=== PATIENT | male | born 1990 | race African-American/Black ===

== ENCOUNTER 2023-06-08 08:13 | Emergency (ER) | payer OTHER, SELFPAY ==
[2023-06-08] VITALS (20 sets, daily range): BP systolic 115–146; BP diastolic 58–103; PULSE 69–91; RESP 17–27; TEMP 37.5; O2SAT 93–100; BMI 23.1
--- NOTE | 2023-06-08 08:42 | ED.SOB1 ---
HPI - SOB/Dyspnea General Chief Complaint: Shortness of Breath/Dyspnea Stated Complaint: SHORTNESS OF BREATH Time Seen by Provider: 06/08/23 08:34 Source: patient Mode of arrival: walk-in Limitations: no limitations History of Present Illness HPI Narrative: Patient here complaining of ongoing shortness of breath and chest discomfort. Most of his pain is on the right anterior lateral aspect of his chest. He said last week the pain started on the left side. He said he almost thought that he had a kidney stone the pain was so bad. He was at a different emergency room yesterday and was told that he might have pneumonia. He has not started his prescription for antibiotics yet. He did do a CAT scan at that other institution. Related Data Allergies Allergy/AdvReac Type Severity Reaction Status Date / Time No Known Drug Allergies Allergy Verified 06/08/23 08:19 PFSH PFS Social History Smoking status: Current every day smoker Exam Narrative Exam Narrative: Awake alert moderately anxious. He is not tachycardic and his pulse oximetry is 99 to 100% when I examined him and speak to him. He is awake alert pleasant but has a lot of discomfort in his right lateral chest wall. There is no discomfort in his leg at this time. His skin is warm and dry is not tachycardic or diaphoretic or pale. Examination of chest there is no wheeze rales or rhonchi. He has a pleuritic component to the pain as well. Heart sounds are regular with no ectopy. This twelve-lead EKG was noted below. Peripheral pulses extremities are normal. He has no swelling of his lower legs. There is no edema. Twelve-lead EKG shows sinus rhythm rate 76. There is nonspecific ST elevation in lead V3 and V4 V5. No ectopy. No arrhythmia/no ST segment elevation Constitutional Vital Signs, click to edit/add: Last Vital Signs Temp 99.5 F 06/08/23 08:16 Pulse 87 06/08/23 08:16 Resp 20 06/08/23 08:16 BP 127/91 06/08/23 08:16 Pulse Ox 100 06/08/23 08:16 O2 Del Method Room Air 06/08/23 08:16 Course Vital Signs Vital signs: Vital Signs Temperature 99.5 F 06/08/23 08:16 Pulse Rate 87 06/08/23 08:16 Respiratory Rate 20 06/08/23 08:16 Blood Pressure 127/91 06/08/23 08:16 Pulse Oximetry 100 06/08/23 08:16 Oxygen Delivery Method Room Air 06/08/23 08:16 Temperature 99.5 F 06/08/23 08:16 Pulse Rate 87 06/08/23 08:16 Respiratory Rate 20 06/08/23 08:16 Blood Pressure 127/91 06/08/23 08:16 Pulse Oximetry 100 06/08/23 08:16 Oxygen Delivery Method Room Air 06/08/23 08:16 MDM - SOB/Dyspnea MDM Narrative Medical decision making narrative: I did obtain lab and chart from the previous facility yesterday. A CT of the abdomen was done because working diagnosis was kidney stones. That study did indeed confirm right basilar infiltrate of pneumonia. Because the severity of his pain I will do a CTA. He does not have risk factors for DVT but there is some suspicion of family history. He also had some discomfort in his leg several weeks ago. The CT report here confirms pneumonia as well as pulmonary embolism. The CT did not suggest right ventricular strain or any cardiac decompensation. So he will be treated for both conditions including pneumonia and the pulmonary embolism. Will start him on Eliquis and it was imperative that he follow-up with his primary care practitioner for ongoing treatment. He was advised to start the antibiotic as well. Discharge Plan Discharge Chief Complaint: Shortness of Breath/Dyspnea Clinical Impression: Pulmonary embolism Patient Disposition: Home, Self-Care Time of Disposition Decision: 10:40 Additional Instructions: Begin eliquis, start your antibiotic, follow-up with your primary care doctor this week. Consider purchasing pulse oximetry, return for difficulty breathing Referrals: BERTRAND MILLER [Primary Care Provider] - 1 week Stand Alone Forms: Portal Instructions
--- NOTE | 2023-06-08 08:45 | CT_ITS ---
[address] [address] Patient Name: CHARISMA COLBY MRN: [id number] date: 1990 Sex: M Assigned Patient Location: ER Current Patient Location: Accession/Order Number: [id number] Exam Date: 06/08/2023 08:57 Report Date: 06/08/2023 09:57 At the request of: NEYMAR YEPEZ Procedure: CT angio chest EXAMINATION: CT angio chest INDICATION: Shortness of breath and right-sided chest pain. COMPARISON: None. TECHNIQUE: Following the administration of intravenous contrast, helical imaging of the chest was performed using PE protocol. Multiplanar reformatted images and MIP sequences were reconstructed. Dose reduction techniques were achieved by using: automated exposure control and/or adjustment of mA and /or kV according to patient size and/or use of iterative reconstruction technique. FINDINGS: TUBES AND LINES: None. LOWER NECK: No significant abnormality. CHEST: AIRWAYS, LUNGS AND PLEURA: Patent central airways. Posterior right lung base consolidative and groundglass opacities. Nodular density with groundglass halo in the medial aspect of the left lung base. Mild paraseptal emphysema. No pleural effusion or pneumothorax. LYMPH NODES: No thoracic adenopathy. ESOPHAGUS: Normal esophagus. GREAT VESSELS: Adequate opacification of the pulmonary arteries. Left upper and bilateral lower lobe segmental and subsegmental pulmonary emboli. Normal caliber main pulmonary artery. No right heart strain. Nonaneurysmal thoracic aorta. No aortic dissection. HEART AND PERICARDIUM: The heart is normal in size. No coronary artery calcifications. No pericardial effusion. UPPER ABDOMEN: No significant abnormality. MUSCULOSKELETAL: SOFT TISSUES: Unremarkable soft tissues. BONES: No acute osseous abnormality or suspicious osseous lesion. CAMACHO: (series:images) CT/CT angio chest IMPRESSION: 1. Left upper and bilateral lower lobe segmental and subsegmental pulmonary emboli. No evidence of right heart strain. 2. Bilateral lower lobe multifocal pneumonia. I, Dr. Laureano Orlando, personally discussed critical findings with Dr. Neymar Yepez on 06/08/2023 9:57 AM EST. Critical results were NOTIFIED by TELEPHONE. Electronically authenticated by: LAUREANO ORLANDO Date: 06/08/2023 09:57
[2023-06-08] MEDS: HYDROCODONE/ACET 5-325 MG TABLET 2 TAB PO (10:14)
[2023-06-08] MEDS: KETOROLAC TROMETHAMINE 10 MG TABLET 20 MG PO (10:14)
[2023-06-08] MEDS: ENOXAPARIN SODIUM 100 MG/ML SYRINGE 86 MG SUBQ (10:15)
--- NOTE | 2023-06-08 10:58 | ECG_ITS ---
[facility] Test Date: 2023-06-08 Pat Name: CHARISMA COLBY Department: Room: - Gender: Male [employer] Operator: : 1990 Requested By: [id number] Order Number: [id number] Reading MD: JOSE PARKER Measurements Intervals [place] Rate: 76 P: 82 ID: [id number] QRS: 88 QRSD: 94 T: 74 QT: 370 QTc: 401 Interpretive Statements [address] elevation, probably early repolarization 9130 borderline ECG No previous ECG available for comparison Electronically Signed On 06-09-2023 6:36:37 EST by JOSE PARKER
== END 2023-06-08 10:58 | disposition home or self-care (01) ==
PROVIDERS: Emergency Provider Emergency Medicine Emergency Medical Services; PCP Nurse Practitioner Family
DX: I26.99 Other pulmonary embolism without acute cor pulmonale (principal); F17.210 Nicotine dependence, cigarettes, uncomplicated
CPT/HCPCS: 71275; 93005; 96372; 99285; Q9967

== ENCOUNTER 2024-10-07 07:59 | Emergency (ER) | payer OTHER, SELFPAY ==
[2024-10-07 08:08] VITALS: BP 146/82; PULSE 89; TEMP 36.8; O2SAT 99; BMI 23.6
--- OUTSIDE RECORDS SUMMARY | 2024-10-07 08:10 | XMS_ITS | CCD ---
Author Organization [facility] Care Team Providers Care Microfilm Operator Name Role Phone Denice Coyne Unavailable RACHEL Coyne Primary Care Provider DO Milton Guerrier Emergency Provider [phone] RACHEL Coyne Referring Provider KAREN Singh Attending Provider RACHEL Coyne Referring Provider KAREN Singh Attending Provider RACHEL Coyne Primary Care Provider DO Roman Jauregui Emergency Provider Zuleyka sanchez Unavailable Primary Care Provider Unavailabl e Roman Jauregui Admitting Unavailable Roamn Jauregui Attending Unavailable Denice Coyne Primary Care Unavailable Denice Coyne Referring Unavailable Lisbet Singh Admitting Unavail able Lisbet Singh Attending Unavail able Denice Coyne Primary Care Unavailable Medications Current Medications Medication Drug Class(es) Dates Sig (Normalized) Sig (Original) apixaban 5 mg oral tablet (7 sources) Factor Xa Inhibitor Start: 07-16-2023 End: 07-30-2023 take 1 tablet by mouth twice daily Apixaban (Eliquis) 5 mg tablet Active 5 MG PO Twice daily 60 July 30, 2023 2:57pm Start: 06-12-2023 End: 07-16-2023 take 2 tablets by mouth twice daily, then take 1 tablet by mouth twice daily Apixaban (Eliquis) 5 mg tablet Discontinued 5 MG PO Twice daily June 12, 2023 1:00am July 16, 2023 3:06pm take 2 tabs twice a day for 7 days and then 1 tab twice daily. Medical Marijuana / Cannabin oid Product (4 sources) Medical Marijuan a / Cannabinoid Product Active Completed/Discontinued Medications Medication Drug Class(es) Dates Sig (Normalized) Sig (Original) acetaminophen 325 mg / HYDROcodone bitartrate 5 mg oral tablet (4 sources) Opioid Agonist Start: 06-12-2023 End: 06-19-2023 take 1 tablet by mouth every six hours Hydrocodone-Aceta minophen Discontinued 1 TAB PO Every 6 hours June 12, 2023 1:00am June 19, 2023 8:34am hydroCHLOROthiazide 25 mg / lisinopril 20 mg oral tablet (8 sources) Thiazide Diuretic, Angiotensin Converting Enzyme Inhibitor Start: 02-28-2020 End: 06-12-2023 take 1 tablet by mouth once daily Lisinopril-Hydroc hlorothiazide Discontinued 1 TAB PO Daily February 28, 2020 1:00am June 12, 2023 3:30pm ibuprofen 200 mg oral tablet (8 sources) Nonsteroidal Anti-inflammatory Drug Start: 06-12-2023 End: 06-19-2023 take 200 mg by mouth every six hours Ibuprofen Discontinued 200 MG PO Every 6 hours June 12, 2023 1:00am June 19, 2023 8:34am Ibuprofen Active levoFLOXacin 500 mg oral tablet (4 sources) Quinolone Antimicrobial Start: 06-07-2023 End: 06-19-2023 take 500 mg by mouth every twenty-four hours Levofloxacin Discontinued 500 MG PO Q24H 10 June 07, 2023 1:00am June 19, 2023 8:34am Problems Active Problems Problem Classification Problem Date Documented Date Episodic/Chronic Attention-deficit, conduct, and disruptive behavior disorders (4 sources) Verbally abusive behavior; Translations: [Other symptoms and signs involving appearance and behavior] 06-01-2021 Episodic Attention-deficit, conduct, and disruptive behavior disorders (4 sources) Uncooperative behavior; Translations: [Other symptoms and signs involving appearance and behavior] 06-01-2021 Episodic Essential hypertension (5 sources) Essential hypertension; Translations: [Essential (primary) hypertension] Onset: 03-22-2021 Resolved: 03-22-2021 Chronic Nonspecific chest pain (4 sources) Atypical chest pain; Translations: [Other chest pain] 03-17-2021 Episodic Other connective tissue disease (4 sources) Musculoskeletal pain; Translations: [Myalgia, other site] 02-28-2020 Episodic Other lower respiratory disease (4 sources) Dyspnea; Translations: [Dyspnea, unspecified] 03-17-2021 Episodic Other nervous system disorders (4 sources) Chronic pain; Translations: [Other chronic pain] Chronic Pneumonia (except that caused by tuberculosis or sexually transmitted disease) (4 sources) Pneumonia; Translations: [Pneumonia, unspecified organism] 06-15-2023 Episodic Sprains and strains (1 source) Strain of back muscle; Translations: [Strain of muscle, fascia and tendon of lower back, initial encounter] 10-10-2023 Episodic Syncope (5 sources) Syncope and collapse; Translations: [Near syncope] Onset: 03-22-2021 Resolved: 03-22-2021 Episodic Past or Other Problems Problem Classification Problem Date Documented Da te Episodic/Chronic Abdominal pain (1 source) Unspecified abdominal pain; Translations: [Unspecified abdominal pain] Onset: 10-10-2023 Episodic Heart valve disorders (4 sources) Heart murmur; Translations: [Cardiac murmur, unspecified] Episodic Other aftercare (4 sources) Marijuana user; Translations: [Other superintendent container terminal (current) drug therapy] Episodic Other aftercare (1 source) Other usp (current) drug therapy Onset: 03-22-2021 Resolved: 03-22-2021 Episodic Other male genital disorders (4 sources) Pain in testicle; Translations: [Testicular pain, unspecified] Episodic Pulmonary heart disease (13 sources) Pulmonary embolism; Translations: [Other pulmonary embolism without acute cor pulmonale] Onset: 01-30-2024 06-12-2023 Episodic Results Test Name Value Interpretation Reference Range Facility Beta-2 glycoprotein antibodi eson 02-02-2024 BETA 2 GLYCOPROTEIN I AB, IGG 57 High 0 - 20 [facility] Comment on above: Result Units: GPI Ig G units The reference interval reflects a 3SD or 99th percentile interval, which is thought to represent a potentially clinically significant result in accordance with the International Consensus Statement on the classification criteria for definitive antiphospholipid syndrome (APS). J Thromb Haem 2006;4:295-306. BETA 2 GLYCOPROTEIN I AB, IGM <9 0 - 32 [facility] Comment on above: Result Units: GPI Ig M units The reference interval reflects a 3SD or 99th percentile interval, which is thought to represent a potentially clinically significant result in accordance with the International Consensus Statement on the classification criteria for definitive antiphospholipid syndrome (APS). J Thromb Haem 2006;4:295-306. Performed at: [address] [id number] Manager Planning: Shen Soto PhD, Phone: [phone] Interpretation and review of laboratory results Abnormal [facility] Beta 2 Glycoprotein I Ab IgG /Mon 01-30-2024 Beta 2 Glycoprotein I Ab, IgG 57 High 0-20 [facility] Comment on above: Result Comment: Resu lt Units: GPI IgG units The reference interval reflects a 3SD or 99th percentile interval, which is thought to represent a potentially clinically significant result in accordance with the International Consensus Statement on the classification criteria for definitive antiphospholipid syndrome (APS). J Thromb Haem 2006;4:295-306. Performed By: #### B 2 GLYPROT #### [facility] , Beta 2 Glycoprotein I Ab, IgM <9 Normal 0-32 [facility] Comment on above: Result Comment: Resu lt Units: GPI IgM units The reference interval reflects a 3SD or 99th percentile interval, which is thought to represent a potentially clinically significant result in accordance with the International Consensus Statement on the classification criteria for definitive antiphospholipid syndrome (APS). J Thromb Haem 2006;4:295-306. Performed at: [facility] [employer] [id number] Manager Planning: Shen Soto PhD, Phone: [phone] PERFORMED BY: [place] [address] PATHOLOGIST UX SPECIALIST ABISAI MORILLO M.D. Performed By: #### B 2 GLYPROT #### [facility] , CT abdomen pelvis wo conon 0 10-11-2023 CT abdomen pelvis wo con [facility] [place] [address] CT Scan Report Signed Patient: Victoriano Guerra MR#: [id number] : 1990 Acct:[id number] Age/Sex: 32 / M ADM Date: 10/10/23 Loc: ER Room: Type: [facility] ER Attending Dr: Copies to: KAREN Tucker DO Ordering Provider: Kendra Mejias APRN Date of Service: 10/10/23 CT/CT abdomen pelvis wo con: flank pain CT ABDOMEN AND PELVIS WITHOUT CONTRAST COMPARISON: 06/07/2023 CLINICAL DATA: Left flank pain. Spiral images were obtained through the abdomen and pelvis without contrast. This CT exam was performed using one or more following dose reduction techniques: Automated exposure control, adjustm ent of the mA and/or kV according to patient size, or use of iterative reconstruction technique. Limited cuts through the lung bases show scarring or atelectasis on the right. Evaluation of the intra-abdominal organs is slightly limited by the absence of contrast. No calcified gallstones are identified. The liver, spleen, pancreas and adrenal glands show no acute findings. No renal calculi or hydronephrosis are identified. No ureteral dilatation or stones are seen. The abdominal aorta is normal caliber. No adenopathy or ascites is identified. There is no dilated small bowel. There is air and stool throughout the colon. The bony structures are intact. Images through the pelvis show no appendiceal inflammation. There is no dilated small bowel. There is small amount of distal colonic stool, greatest at the rectum. No diverticular disease is identified. The prostate is within normal limits for size. The urinary bladder is not well- distended for evaluation. No ascites is seen. CT/CT abdomen pelvis wo con IMPRESSION: RIGHT BASILAR SCARRING OR ATELECTASIS. NO BOWEL OR URINARY TRACT OBSTRUCTION. No acute findings. Impression dictated by: Marilin Fernández M.D.10/11/2023 8:38 AM Dictation Location: [place] [address] Transcribed By: [facility] 10/11/2338 Dictated By: Marilin Fernández MD 10/11/23 0833 Signed By: 10/11/23 08 Normal [facility] Automated epithelial cells c ount in urine sediment (number/area)Ordered By: Kendra Mejias on 10-10-2023 Epithelial cells Auto (Urine sed) [#/Area] None seen [HPF] 0-2 Bacteria [Presence] in Urine by AutomatedOrdered By: Kendra Ghoshjohn on 10-10-2023 Bacteria Auto Ql (U) None seen [HPF] None Seen Bilirubin Test strip Ql (U)O rdered By: Kendra Safjohn on 10-10-2023 Bilirubin Ql (U) Negative Negative [facility] Color of Urine by AutoOrdere d By: Kendra Mejias on 10-10-2023 Color (U) Yellow Normal Yellow Comment on above: Order Comment: Name Collection Type:: Clean-Voided Midstream Performed By: #### A DDONUAPLUS #### [facility] [address] [place] [address] [place] Dipstick and Microscopicon 0 10-10-2023 Appearance (U) Clear Normal Clear [facility] Comment on above: Order Comment: Name Collection Type:: Clean-Voided Midstream Performed By: #### A DDONUAPLUS #### [place] [id number] [place] Bacteria,Urine None Seen Normal None Seen [facility] Comment on above: Order Comment: Name Collection Type:: Clean-Voided Midstream Performed By: #### A DDONUAPLUS #### [facility] [address] [place] [address] [place] Bilirubin,Urine Negative Normal Negative [facility] Comment on above: Order Comment: Name Collection Type:: Clean-Voided Midstream Performed By: #### A DDONUAPLUS #### [facility] [address] [place] [id number] [place] Glucose Ql (U) Normal Normal Normal [facility] Comment on above: Order Comment: Name Collection Type:: Clean-Voided Midstream Performed By: #### A DDONUAPLUS #### [facility] [address] [place] [id number] [place] Hyaline Casts,Urine None Seen Normal 0-8 [facility] Comment on above: Order Comment: Name Collection Type:: Clean-Voided Midstream Result Comment: PERF ORMED BY: [place] [address] PATHOLOGIST UX SPECIALIST ABISAI MORILLO M.D. Performed By: #### A DDONUAPLUS #### [address] Ketones Ql (U) Negative Normal Negative [facility] Comment on above: Order Comment: Name Collection Type:: Clean-Voided Midstream Performed By: #### A DDONUAPLUS #### [address] Leukocyte esterase Test strip Ql (U) 1+ High Negative [facility] Comment on above: Order Comment: Name Collection Type:: Clean-Voided Midstream Performed By: #### A DDONUAPLUS #### [place] [address] [place] Nitrite,Urine Negative Normal Negative [facility] Comment on above: Order Comment: Name Collection Type:: Clean-Voided Midstream Performed By: #### A DDONUAPLUS #### [place] [address] [place] Occult Blood,Urine Negative Normal Negative [facility] Comment on above: Order Comment: Name Collection Type:: Clean-Voided Midstream Result Comment: PERF ORMED BY: [place] [address] PATHOLOGIST UX SPECIALIST ABISAI MORILLO M.D. Performed By: #### A DDONUAPLUS #### [place] [address] [place] Protein,Urine Negative Normal Negative [facility] Comment on above: Order Comment: Name Collection Type:: Clean-Voided Midstream Performed By: #### A DDONUAPLUS #### [place] [address] [place] RBC,Urine None Seen Normal 0-4 [facility] Comment on above: Order Comment: Name Collection Type:: Clean-Voided Midstream Performed By: #### A DDONUAPLUS #### [place] [address] [place] Specificy Astor,Urine 1.016 Normal 1.001-1.03 0 [facility] Comment on above: Order Comment: Name Collection Type:: Clean-Voided Midstream Performed By: #### A DDONUAPLUS #### [facility] [address] Squamous Epithelial Cell,Urine None Seen Normal 0-2 [facility] Comment on above: Order Comment: Name Collection Type:: Clean-Voided Midstream Performed By: #### A DDONUAPLUS #### [facility] [address] Urobilinogen,Urine Normal Normal Normal [facility] Comment on above: Order Comment: Name Collection Type:: Clean-Voided Midstream Performed By: #### A DDONUAPLUS #### [address] WBC,Urine 3-4 Normal 0-4 [facility] Comment on above: Order Comment: Name Collection Type:: Clean-Voided Midstream Performed By: #### A DDONUAPLUS #### [facility] [address] [place] [address] Erythrocytes [#/area] in Uri ne sediment by Automated countOrdered By: Kendra Mejias on 10-10-2023 RBC Auto (Urine sed) [#/Area] None seen [HPF] 0-4 Ketones Auto test strip (U) [Mass/Vol]Ordered By: Kendra Mejias on 10-10-2023 Ketones (U) [Mass/Vol] Negative Negative [facility] - UrinalysisOrder ed By: Kendra Mejias on 10-10-2023 Hyaline casts LM Ql (Urine sed) None seen [LPF] 0-8 Leukocytes [#/area] in Urine sediment by Automated countOrdered By: Kendra Mejias on 10-10-2023 WBC Auto (Urine sed) [#/Area] 3-4 [HPF] 0-4 Nitrite Test strip Ql (U)Ord ered By: Kendra Mejias on 10-10-2023 Nitrite Ql (U) Negative Negative Protein Auto test strip (U) [Mass/Vol]Ordered By: Kendra Mejias on 10-10-2023 Protein (U) [Mass/Vol] Negative Negative Fi [facility] Specific gravity Auto test s trip (U) [Rel density]Ordered By: Kendra Mejias on 10-10-2023 Specific gravity (U) [Rel density] 1.016 1.001-1.03 0 Urine clarity by refractomet ry automatedOrdered By: Kendra Mejias on 10-10-2023 Clarity Refractometry automated (U) Clear Clear Urine glucose measurement by automated test strip (mass/volume)Ordered By: Kendra Mejias on 10-10-2023 Glucose Auto test strip (U) [Mass/Vol] Normal mg/dL Normal Urine hemoglobin detection b y automated test stripOrdered By: Kendra Mejias on 10-10-2023 Hemoglobin Auto test strip Ql (U) Negative Negative Urine leukocyte esterase det ection by automated test stripOrdered By: Kendra Mejias on 10-10-2023 Leukocyte esterase Auto test strip Ql (U) 1+ High Negative Urine pH measurement by auto mated test stripOrdered By: Kendra Mejias on 10-10-2023 pH (U) 6.5 [pH] Normal 5.0-9.0 Comment on above: Order Comment: Name Collection Type:: Clean-Voided Midstream Performed By: #### A DDONUAPLUS #### [address] Urobilinogen Auto test strip (U) [Mass/Vol]Ordered By: Kendra Mejias on 10-10-2023 Urobilinogen (U) [Mass/Vol] Normal mg/dL Normal Alanine aminotransferase [En zymatic activity/volume] in Serum or PlasmaOrdered By: Lisbet Singh on 07-23-2023 ALT [Catalytic activity/Vol] 15 U/L 752 Albumin [Mass/volume] in Ser um or Plasma by Bromocresol green (BCG) dye binding methoOrdered By: Lisbet Singh on 07-23-2023 Albumin BCG dye [Mass/Vol] 4.4 g/dL 3.5-5.7 Alkaline phosphatase [Enzyma tic activity/volume] in Serum or PlasmaOrdered By: Lisbet Singh on 07-23-2023 ALP [Catalytic activity/Vol] 81 U/L 34-104 Antithrombin antigen actual/ normal in platelet poor plasma by immunologic methodOrdered By: Lisbet Singh on 07-23-2023 Antithrombin Ag actual/normal IA (PPP) [Relative mass conc] 98 % 72-124 Comment on above: This test was develo ped and its performance characteristicsdetermined by [facility]. It has not been cleared orapproved by the Food and Drug Administration.Performed at: [facility] [employer] [id number] Director: Xander Baugh MD, Phone: [phone] Aspartate aminotransferase [ Enzymatic activity/volume] in Serum or PlasmaOrdered By: Lisbet Singh on 07-23-2023 AST [Catalytic activity/Vol] 17 U/L 13-39 Basophils Auto (Bld) [#/Vol] Ordered By: Lisbet Singh on 07-23-2023 Basophils (Bld) [#/Vol] 0.0 10*3/uL 0.0-0.2 Basophils/100 WBC Auto (Bld) Ordered By: Lisbet Singh on 07-23-2023 Basophils/100 WBC (Bld) 0.5 % . Beta 2 glycoprotein 1 IgG Ab [Units/volume] in SerumOrdered By: Lisbet Singh on 07-23-2023 Beta 2 glycoprotein 1 IgG Qn (S) 63 High 0-20 Comment on above: Result Units: GPI Ig G unitsThe reference interval reflects a 3SD or 99th percentileinterval, which is thought to represent a potentiallyclinically significant result in accordance with theInternational Consensus Statement on the classificationcriteria for definitive antiphospholipid syndrome (APS). JThromb Haem 2006;4:295-306. Beta 2 glycoprotein 1 IgM Ab [Units/volume] in SerumOrdered By: Lisbet Singh on 07-23-2023 Beta 2 glycoprotein 1 IgM Qn (S) <9 0-32 Comment on above: Result Units: GPI Ig M unitsThe reference interval reflects a 3SD or 99th percentileinterval, which is thought to represent a potentiallyclinically significant result in accordance with theBanner Behavioral Health Hospitalnational Consensus Statement on the classificationcriteria for definitive antiphospholipid syndrome (APS). JThromb Haem 2006;4:295-306.Performed at: [employer] [id number] Director: Xander Baugh MD, Phone: [phone] Bilirubin.total [Mass/volume ] in Serum or PlasmaOrdered By: Lisbet Singh on 07-23-2023 Bilirubin [Mass/Vol] 0.8 mg/dL 0.3-1.0 [facility] Calcium [Mass/volume] in Ser um or PlasmaOrdered By: Lisbet Singh on 07-23-2023 Calcium [Mass/Vol] 9.6 mg/dL 8.6-10.3 [facility] Carbon dioxide, total [Moles /volume] in Serum or PlasmaOrdered By: Lisbet Singh on 07-23-2023 CO2 [Moles/Vol] 30.7 mmol/L 21.0-31.0 [facility] Cardiolipin IgA Ab [Units/vo lume] in Serum by ImmunoassayOrdered By: Lisbet Singh on 07-23-2023 Cardiolipin IgA IA Qn (S) <9 APL U/mL 0-11 Comment on above: Negative: <12 Indete rminate: 12 - 20 Low-Med Positive: >20 - 80 High Positive: >80Performed at: [facility] [id number] Director: Shen Soto PhD, Phone: [phone] Cardiolipin IgG Ab [Units/vo lume] in Serum by ImmunoassayOrdered By: Lisbet Singh on 07-23-2023 Cardiolipin IgG IA Qn (S) <9 GPL U/mL 0-14 Comment on above: Negative: <15 Indete rminate: 15 - 20 Low-Med Positive: >20 - 80 High Positive: >80 Cardiolipin IgM Ab [Units/vo lume] in Serum by ImmunoassayOrdered By: Lisbet Francisco on 07-23-2023 Cardiolipin IgM IA Qn (S) <9 MPL U/mL 0-12 Comment on above: Negative: <13 Indete rminate: 13 - 20 Low-Med Positive: >20 - 80 High Positive: >80 Chloride [Moles/volume] in S susu or PlasmaOrdered By: Lisbet Singh on 07-23-2023 Chloride [Moles/Vol] 102 mmol/L 98-107 [facility] Creatinine [Mass/volume] in Serum or PlasmaOrdered By: Lisbet Singh on 07-23-2023 Creatinine [Mass/Vol] 1.00 mg/dL 0.70-1.30 [facility] Eosinophils Auto (Bld) [#/Vo l]Ordered By: Lisbet Singh on 07-23-2023 Eosinophils (Bld) [#/Vol] 0.0 10*3/uL 0.0-0.45 Eosinophils/100 WBC Auto (Bl d)Ordered By: Lisbet Francisco on 07-23-2023 Eosinophils/100 WBC (Bld) 0.1 % . Erythrocyte distribution wid th Auto (RBC) [Ratio]Ordered By: Lisbet Francisco on 07-23-2023 Erythrocyte distribution width (RBC) [Ratio] 13.5 % 12.0-14.8 F5 gene mutations found [Rigoberto ntifier] in Blood or Tissue by Molecular genetics methodOrdered By: Lisbet Francisco on 07-23-2023 F5 gene targeted mutation analysis [employer] Nom (Bld/Tiss) See comment . Comment on above: Result: c.1601G>A (p .[id number]) - Not DetectedThis result is not associated with an increased risk for venousthromboembolism. See Additional Clinical Information andComments.Additional Clinical Information:Venous thromboembolism is a multifactorial diseaseinfluenced by genetic, environmental, and circumstantialrisk factors. The c.1601G>A (p. [id number]) variant in theF5 gene, commonly referred to as Factor V Leiden, is agenetic risk factor for venous thromboembolism.Heterozygous carriers of this variant have a 6- to 8-foldincreased risk for venous thromboembolism. Individualshomozygous for this variant (ie, with a copy of the varianton each chromosome) have an approximately 80-fold increasedrisk for venous thromboembolism. Individuals who carry reyna c.*97G>A variant in the F2 gene and Factor V Leiden havean approximately 20-fold increased risk for venousthromboembolism. Risks are likely to be even higher in morecomplex genotype combinations involving the F2 c.*97G>Avariant and Factor V Leiden (PMID: [id number]). Additionalrisk factors include but are not limited to: deficiency ofprotein C, protein S, or antithrombin III, age, male sex,personal or family history of deep vein thromboembolism,smoking, surgery, prolonged immobilization, malignantneoplasm, tamoxifen treatment, raloxifene treatment, oralcontraceptive use, hormone replacement therapy, andpregnancy. Management of thrombotic risk and thromboticevents should follow established guidelines and fit theclinical circumstance. This result cannot predict theoccurrence or recurrence of a thrombotic event.Comment:Genetic counseling is recommended to discuss thepotential clinical implications of positive results, aswell as recommendations for testing family members.Genetic Coordinators are available for health careproviders to discuss results at [phone] ([phone]).Test Details:Variant Analyzed: c.1601G>A (p. [id number]), referred toas Factor V LeidenMethods/Limitations:DNA analysis of the F5 gene (NM_000130.5) was performedby PCR amplification followed by restriction enzymeanalysis. The diagnostic sensitivity is >99%. Results mustbe combined with clinical information for the most accurateinterpretation. Molecular-based testing is highly accurate,but as in any laboratory test, diagnostic errors may occur.False positive or false negative results may occur forreasons that include genetic variants, blood transfusions,bone marrow transplantation, somatic or tissue-specificmosaicism, mislabeled samples, or erroneous representationof family relationships.This test was developed and its performance characteristicsdetermined by [facility]. It has not been cleared orapproved by the Food and Drug Administration.References:Vanessa S, Divya AK, Brian R, Adonay GODFREY, Madi JH; ACMGProfessional Practice and Guidelines Committee. Addendum:[employer] consensus statement onfactor V Leiden mutation testing. [employer] Med. 2020Jun 09.doi: 10.1038/p71196-611-84534-j. PMID: 79117640.Elie MARTINEZ. Factor V Leiden Thrombophilia. 1998August 18(Updated 2017Apr 10). In: Arturo MP, Harvinder HH, Shai RA,et al., editors. Jammie(R) (Internet). [place] ([place]):[facility]; 4471-0134. Availablefrom: https://www.ncbi.nlm.nih.gov/books/NUU2826/Noé S, Divya AK, Dawit X, Davi B, Michael EB, Sarai P,Levi CS; ACMG Laboratory Practice Billing Associate Committee.Venous thromboembolism laboratory testing (factor V Leidenand factor II c.*97G>A), 2018 update: a technical standardof the [employer](ACMG). Cady Med. 2017;20(12):9488-9580. doi:10.1038/[id number]. Epub 2017Jan 09. PMID: 31080263. Fibrin D-dimer [Presence] in Platelet poor plasma by Latex agglutinationOrdered By: Lisbet Singh on 07-23-2023 Fibrin D-dimer LA Ql (PPP) < 200 ng/mL 0-243 Comment on above: The reference range for D-dimer is <243 ng/mL D-dimer units.D-dimer results must be used in conjunction with a clinicalpretest probability (PTP) assessment model for deep veinthrombosis (DVT) and pulmonary embolism (PE). Results <230ng/mL d-dimer units can be used as a negative predictor inpatients with low or moderate probability for DVT/PE.Results above the exclusion threshold of 230 ng/ml D-dimerunits for DVT/PE may indicate the need for furtherdiagnostic testing.D-Dimer can be increased in hospitalized patients due toco-morbid conditions.A hematocrit value greater than 55% may lead to inaccurate results in coagulation testing. Patients having hematocrit values >55% require a special collection tube for coagulation studies. Please contact the laboratory at [phone] for redraw instructions. Free protein S measurementOr dered By: Lisbet Singh on 07-23-2023 Protein S Free Ag IA Qn (PPP) 100 % 61-136 Comment on above: Performed at: [facility] [address] [id number] Director: Xander Baugh MD, Phone: [phone] Functional protein C measure mentOrdered By: Lisbet Singh on 07-23-2023 Protein C actual/normal Chromogenic method (PPP) [Rel catalytic activity/Vol] 135 % 73-180 Comment on above: Performed at: [facility] [address] [id number] Director: Xander Baugh MD, Phone: [phone] Globulin Calc (S) [Mass/Vol] Ordered By: Lisbet Singh on 07-23-2023 Globulin (S) [Mass/Vol] 2.8 g/dL Glucose [Mass/volume] in Ser um or PlasmaOrdered By: Lisbet Singh on 07-23-2023 Glucose [Mass/Vol] 77 mg/dL 70-100 [facility] Comment on above: ADA recommended refe rence rangeRandom Glucose Reference Range is dependent on time and content of last meal. Glucose of more than 200 mg/dL in a nonstressed, ambulatory subject supports the diagnosis of Diabetes Mellitus. Hematocrit Auto (Bld) [Volum e fraction]Ordered By: Lisbet Singh on 07-23-2023 Hematocrit (Bld) [Volume fraction] 44.2 % 38.8-50.0 Hemoglobin [Mass/volume] in BloodOrdered By: Lisbet Singh on 07-23-2023 Hemoglobin (Bld) [Mass/Vol] 14.8 g/dL 13.0-17.0 Leukocytes [#/volume] correc audrey for nucleated erythrocytes in Blood by Automated counOrdered By: Lisbet Singh on 07-23-2023 WBC corrected for nucl RBC Auto (Bld) [#/Vol] 4.5 10*3/uL 4.1-10.5 Lupus anticoagulant [Interpr etation] in Platelet poor plasmaOrdered By: Lisbet Singh on 07-23-2023 Lupus anticoagulant (PPP) [Interp] Comment: . Comment on above: No lupus anticoagula nt was detected.Performed at: - [facility] [id number] Director: Xander Baugh MD, Phone: [phone] Lymphocytes Auto (Bld) [#/Vo l]Ordered By: Lisbet Singh on 07-23-2023 Lymphocytes (Bld) [#/Vol] 1.4 10*3/uL 1.00-4.8 Lymphocytes/100 WBC Auto (Bl d)Ordered By: Lisbet Singh on 07-23-2023 Lymphocytes/100 WBC (Bld) 31.1 % . MCH Auto (RBC) [Entitic mass ]Ordered By: Lisbet Singh on 07-23-2023 MCH (RBC) [Entitic mass] 32.3 pg 27.5-35.2 MCHC Auto (RBC) [Mass/Vol]Or dered By: Lisbet Singh on 07-23-2023 MCHC (RBC) [Mass/Vol] 33.6 g/dL 32.5-35.6 [facility] MCV Auto (RBC) [Entitic vol] Ordered By: Lisbet Singh on 07-23-2023 MCV (RBC) [Entitic vol] 96.2 fL 83.5-101 Monocytes Auto (Bld) [#/Vol] Ordered By: Lisbet Singh on 07-23-2023 Monocytes (Bld) [#/Vol] 0.5 10*3/uL 0.0-0.8 Monocytes/100 WBC Auto (Bld) Ordered By: Lisbet Singh on 07-23-2023 Monocytes/100 WBC (Bld) 11.0 % . Neutrophils Auto (Bld) [#/Vo l]Ordered By: Lisbet Singh on 07-23-2023 Neutrophils (Bld) [#/Vol] 2.6 10*3/uL 1.8-7.7 Neutrophils/100 WBC Auto (Bl d)Ordered By: Lisbet Singh on 07-23-2023 Neutrophils/100 WBC (Bld) 57.3 % . No Panel InformationOrdered By: Lisbet Singh on 07-23-2023 Estimated GFR (CKD-EPI) > 60.0 mL/Min Factor II DNA Analysis Comment Richard aparicio, phd . Comment on above: Performed at: [facility] [id number] [id number] [employer], [facility], [place] [id number] Director: Maximus Plata [facility], Phone: [phone] Factor V Leiden Interpretation See comment . Comment on above: Technical Component performed at [facility] RTPProfessional Component performed by:Satish Almodovar, Ph.D., FACMGDirector, Molecular F[address] [place] [id number] at: [facility] [id number] [employer], [facility], [place] [id number] Director: Maximus Plata [facility], Phone: [phone] Factor V Leiden Mutation Note N/A Functional Protein S 107 % 63-140 [facility] Comment on above: Protein S activity m ay be falsely increased (masking anabnormal, low result) in patients receiving direct Xainhibitor (e.g., rivaroxaban, apixaban, edoxaban) or adirect thrombin inhibitor (e.g., dabigatran) anticoagulanttreatment due to assay interference by these drugs.Performed at: [facility] [id number] Director: Xander Baugh MD, Phone: [phone] Pharmacy Creatinine Clearance (Chem 127.79 Nucleated erythrocytes [Pres ence] in Blood by Automated countOrdered By: Lisbet Singh on 07-23-2023 Nucleated RBC Auto Ql (Bld) 0.2 /100{WBC} 0-0.5 Platelet mean volume Auto (B ld) [Entitic vol]Ordered By: Lisbet Singh on 07-23-2023 Platelet mean volume (Bld) [Entitic vol] 9.2 fL 6.6-10.1 Platelet poor plasma ratio o f lupus anticoagulant-sensitive activated partial thromboOrdered By: Lisbet Singh on 07-23-2023 aPTT.lupus sensitive.excess phospholipid actual/normal Coag (PPP) [Relative time] 43.7 sec 0.0-47.6 Platelets Auto (Bld) [#/Vol] Ordered By: Lisbet Singh on 07-23-2023 Platelets (Bld) [#/Vol] 151 10*3/uL 150-450 Potassium [Moles/volume] in Serum or PlasmaOrdered By: Lisbet Singh on 07-23-2023 Potassium [Moles/Vol] 4.3 mmol/L 3.5-5.1 [facility] Protein C antigen assayOrder ed By: Lisbet Singh on 07-23-2023 Protein C Ag actual/normal IA (PPP) [Relative mass conc] 181 % High 60-150 Comment on above: Performed at: [address] [id number] Director: Xander Baugh MD, Phone: [phone] Protein S measurement in alyssa telet poor plasma by coagulation assay (units/volume)Ordered By: Lisbet Singh on 07-23-2023 Protein S Coag Qn (PPP) 80 % 60-150 Comment on above: This test was develo ped and its performance characteristicsdetermined by [facility]. It has not been cleared orapproved by the Food and Drug Administration. Protein [Mass/volume] in Ser um or PlasmaOrdered By: Lisbet Singh on 07-23-2023 Protein [Mass/Vol] 7.2 g/dL 6.4-8.9 [facility] Prothrombin gene [id number] mut ation detectionOrdered By: Lisbet Singh on 07-23-2023 F2 gene targeted mutation analysis [employer] (Bld/Tiss) See comment . Comment on above: Result: c.*97G>A - N ot DetectedThis result is not associated with an increased risk for venousthromboembolism. See Additional Clinical Information andComments.Additional Clinical Information:Venous thromboembolism is a multifactorial disease influenced bygenetic, environmental, and circumstantial risk factors. The c.*97G>Avariant in the F2 gene is a genetic risk factor for venousthromboembolism. Heterozygous carriers have a 2- to 4-fold increasedrisk for venous thromboembolism. Homozygotes for the c.*97G>A variantare rare. The annual risk of VTE in homozygotes has been reported leticia 1.1%/year. Individuals who carry both a c.*97G>A variant in theF2 gene and a c.1601G>A (p. [id number]) variant in the F5 gene(commonly referred to as Factor V Leiden) have an approximately 20-fold increased risk for venous thromboembolism. Risks are likely leticia even higher in more complex genotype combinations involving theF2 c.*97G>A variant and Factor V Leiden (PMID: 14246090). Additionalrisk factors include but are not limited to: deficiency of protein C,protein S, or antithrombin III, age, male sex, personal or familyhistory of deep vein thromboembolism, smoking, surgery, prolongedimmobilization, malignant neoplasm, tamoxifen treatment, raloxifenetreatment, oral contraceptive use, hormone replacement therapy, andpregnancy. Management of thrombotic risk and thrombotic events shouldfollow established guidelines and fit the clinical circumstance. Thisresult cannot predict the occurrence or recurrence of a thromboticevent.Comments:Genetic counseling is recommended to discuss the potential clinicalimplications of positive results, as well as recommendations fortesting family members.Genetic Coordinators are available for health care providers to discussresults at [phone] ([phone] Details:Variant analyzed: c.*97G>A, previously referred to as [id number]/Limitations:DNA analysis of the F2 gene (NM_[id number]) was performed by PCRamplification followed by restriction enzyme analysis. The diagnosticsensitivity is >99%. Results must be combined with clinicalinformation for the most accurate interpretation. Molecular-basedtesting is highly accurate, but as in any laboratory test, diagnosticerrors may occur. False positive or false negative results may occurfor reasons that include genetic variants, blood transfusions, bonemarrow transplantation, somatic or tissue-specific mosaicism,mislabeled samples, or erroneous representation of familyrelationships.This test was developed and its performance characteristics determinedby [facility]. It has not been cleared or approved by the Food and DrugAdministration.References:Vanessa S, Divya HANSON, Brian R, Adonay WW, Madi JH; ACMG ProfessionalPractice and Guidelines Committee. Addendum: [place] [employer] consensus statement on factor V Leiden mutationtesting. Cady Med. 2020Jun 09. doi: 10.1038/[id number]-v.PMID: [id number].Elie MARTINEZ. Prothrombin Thrombophilia. 2005Oct 29[Updated 2020May 11]. In: Arturo MP, Harvinder HH, Shai RA, et al.,editors. Jammie(R) [Internet]. [place] ([place]): [facility]; [phone]. Available from:https://www.ncbi.nlm.nih.gov/books/ONG0920/Noé S, Divya AHNSON, Dawit X, Davi B, Michael EB, Sarai P, Levi CS;[employer] Laboratory Practice Billing Associate Committee. Venous thromboembolismlaboratory testing (factor V Leiden and factor II c.*97G>A),2018 update: a technical standard of the [employer] (ACMG). Cady Med. 2018 Mar;20(12):3960-6425.doi: 10.1038/[id number]. Epub 2017Jan 09. PMID: [id number]. RBC Auto (Bld) [#/Vol]Ordere d By: Lisbet Singh on 07-23-2023 RBC (Bld) [#/Vol] 4.60 10*6/uL 3.90-5.60 [facility] Screening dilute Mook's v iper venom time (DRVVT) with reflex to confirmatory testOrdered By: Lisbet Singh on 07-23-2023 dRVVT Coag (PPP) [Time] 41.6 s 0.0-47.0 Screening lupus anticoagulan t-sensitive activated partial thromboplastin time (aPTT)Ordered By: Lisbet Singh on 07-23-2023 aPTT.lupus sensitive Coag (PPP) [Time] 31.7 sec 0.0-43.5 Serum or plasma albumin/glob ulin mass ratioOrdered By: Lisbet Singh on 07-23-2023 Albumin/Globulin [Mass ratio] 1.6 {ratio} Serum or plasma anion gap de terminationOrdered By: Lisbet Singh on 07-23-2023 Anion gap [Moles/Vol] 11.6 mmol/L 6.0-15.0 [facility] Sodium [Moles/volume] in Ser um or PlasmaOrdered By: Lisbet Singh on 07-23-2023 Sodium [Moles/Vol] 140 mmol/L 136-145 [facility] TT plasOrdered By: Lisbet singer on 07-23-2023 Thrombin time Coag (PPP) [Time] 20.5 sec 0.0-23.0 Urea nitrogen [Mass/volume] in Serum or PlasmaOrdered By: Lisbet Singh on 07-23-2023 Urea nitrogen [Mass/Vol] 8 mg/dL 10-29 WBC Auto (Bld) [#/Vol]Ordere d By: Lisbet Singh on 07-23-2023 WBC (Bld) [#/Vol] 4.5 10*3/uL 4.1-10.5 [facility] aPTT.lupus sensitive/aPTT.kyleigh pus sensitive W excess phospholipid (screen to confirm raOrdered By: Lisbet Singh on 07-23-2023 aPTT.lupus sensitive/aPTT.lupus sensitive W excess phospholipid Coag (PPP) [Ratio] 1.19 Ratio 0.00-1.34 Alanine aminotransferase [En zymatic activity/volume] in Serum or PlasmaOrdered By: Milton Guerrier on 06-07-2023 ALT [Catalytic activity/Vol] 14 U/L Albumin [Mass/volume] in Ser um or Plasma by Bromocresol green (BCG) dye binding methoOrdered By: Milton Guerrier on 06-07-2023 Albumin BCG dye [Mass/Vol] 4.6 g/dL 3.5-5.7 Alkaline phosphatase [Enzyma tic activity/volume] in Serum or PlasmaOrdered By: Milton Guerrier on 06-07-2023 ALP [Catalytic activity/Vol] 122 U/L 34-104 Aspartate aminotransferase [ Enzymatic activity/volume] in Serum or PlasmaOrdered By: Milton Guerrier on 06-07-2023 AST [Catalytic activity/Vol] 18 U/L 13-39 Automated erythrocytes count in urine sediment (number/area)Ordered By: Milton Guerrier on 06-07-2023 RBC Auto (Urine sed) [#/Area] None seen [HPF] 0-4 Automated leukocytes count i n urine sediment (number/area)Ordered By: Milton Guerrier on 06-07-2023 WBC Auto (Urine sed) [#/Area] 1-2 [HPF] 0-4 Basophils Auto (Bld) [#/Vol] Ordered By: Milton Guerrier on 06-07-2023 Basophils (Bld) [#/Vol] 0.1 10*3/uL 0.0-0.2 Basophils/100 WBC Auto (Bld) Ordered By: Milton Guerrier on 06-07-2023 Basophils/100 WBC (Bld) 1.0 % . Bilirubin Test strip Ql (U)O rdered By: Milton Guerrier on 06-07-2023 Bilirubin Ql (U) Negative Negative [facility] Bilirubin.direct [Mass/volum e] in Serum or PlasmaOrdered By: Milton Guerrier on 06-07-2023 Bilirubin.direct [Mass/Vol] 0.20 mg/dL 0.03-0.18 Bilirubin.total [Mass/volume ] in Serum or PlasmaOrdered By: Milton Guerrier on 06-07-2023 Bilirubin [Mass/Vol] 0.8 mg/dL 0.3-1.0 [facility] Calcium [Mass/volume] in Ser um or PlasmaOrdered By: Milton Guerrier on 06-07-2023 Calcium [Mass/Vol] 8.9 mg/dL 8.6-10.3 [facility] Carbon dioxide, total [Moles /volume] in Serum or PlasmaOrdered By: Milton Guerrier on 06-07-2023 CO2 [Moles/Vol] 29.2 mmol/L 21.0-31.0 [facility] Chloride [Moles/volume] in S susu or PlasmaOrdered By: Milton Guerrier on 06-07-2023 Chloride [Moles/Vol] 98 mmol/L 98-107 [facility] Color Auto (U)Ordered By: Caleb Guerrier on 06-07-2023 Color (U) Yellow Yellow Creatinine [Mass/volume] in Serum or PlasmaOrdered By: Milton Guerrier on 06-07-2023 Creatinine [Mass/Vol] 1.00 mg/dL 0.70-1.30 [facility] Eosinophils Auto (Bld) [#/Vo l]Ordered By: Milton Guerrier on 06-07-2023 Eosinophils (Bld) [#/Vol] 0.0 10*3/uL 0.0-0.45 Eosinophils/100 WBC Auto (Bl d)Ordered By: Milton Guerrier on 06-07-2023 Eosinophils/100 WBC (Bld) 0.0 % . Erythrocyte distribution wid th Auto (RBC) [Ratio]Ordered By: Milton Guerrier on 06-07-2023 Erythrocyte distribution width (RBC) [Ratio] 12.1 % 12.0-14.8 Globulin Calc (S) [Mass/Vol] Ordered By: Milton Guerrier on 06-07-2023 Globulin (S) [Mass/Vol] 3.6 g/dL Glucose [Mass/volume] in Ser um or PlasmaOrdered By: Milton Guerrier on 06-07-2023 Glucose [Mass/Vol] 104 mg/dL 70-100 [facility] Comment on above: ADA recommended refe rence rangeRandom Glucose Reference Range is dependent on time and content of last meal. Glucose of more than 200 mg/dL in a nonstressed, ambulatory subject supports the diagnosis of Diabetes Mellitus. Hematocrit Auto (Bld) [Volum e fraction]Ordered By: Milton Guerrier on 06-07-2023 Hematocrit (Bld) [Volume fraction] 43.3 % 38.8-50.0 Hemoglobin [Mass/volume] in BloodOrdered By: Milton Guerrier on 06-07-2023 Hemoglobin (Bld) [Mass/Vol] 14.8 g/dL 13.0-17.0 Ketones Auto test strip (U) [Mass/Vol]Ordered By: Milton Guerrier on 06-07-2023 Ketones (U) [Mass/Vol] 1+ Negative [facility] - UrinalysisOrder ed By: Milton Guerrier on 06-07-2023 Hyaline casts LM Ql (Urine sed) 0-8 [LPF] 0-8 Leukocytes [#/volume] correc audrey for nucleated erythrocytes in Blood by Automated counOrdered By: Milton Guerrier on 06-07-2023 WBC corrected for nucl RBC Auto (Bld) [#/Vol] 9.0 10*3/uL 4.1-10.5 Lipase [Enzymatic activity/v olume] in Serum or PlasmaOrdered By: Milton Guerrier on 06-07-2023 Lipase [Catalytic activity/Vol] 10.0 U/L 11.0-82.0 Lymphocytes Auto (Bld) [#/Vo l]Ordered By: Milton Guerrier on 06-07-2023 Lymphocytes (Bld) [#/Vol] 2.2 10*3/uL 1.00-4.8 Lymphocytes/100 WBC Auto (Bl d)Ordered By: Milton Guerrier on 06-07-2023 Lymphocytes/100 WBC (Bld) 24.2 % . MCH Auto (RBC) [Entitic mass ]Ordered By: Milton Guerrier on 06-07-2023 MCH (RBC) [Entitic mass] 33.2 pg 27.5-35.2 MCHC Auto (RBC) [Mass/Vol]Or dered By: Milton Guerrier on 06-07-2023 MCHC (RBC) [Mass/Vol] 34.2 g/dL 32.5-35.6 [facility] MCV Auto (RBC) [Entitic vol] Ordered By: Milton Guerrier on 06-07-2023 MCV (RBC) [Entitic vol] 96.9 fL 83.5-101 Monocyte distribution width [Entitic volume] in Blood by AutomatedOrdered By: Milton Guerrier on 06-07-2023 Monocyte distribution width Auto (Bld) [Entitic vol] 19.01 % 0.00-20.00 Monocytes Auto (Bld) [#/Vol] Ordered By: Milton Guerrier on 06-07-2023 Monocytes (Bld) [#/Vol] 1.2 10*3/uL 0.0-0.8 Monocytes/100 WBC Auto (Bld) Ordered By: Milton Guerrier on 06-07-2023 Monocytes/100 WBC (Bld) 13.4 % . Neutrophils Auto (Bld) [#/Vo l]Ordered By: Milton Guerrier on 06-07-2023 Neutrophils (Bld) [#/Vol] 5.5 10*3/uL 1.8-7.7 Neutrophils/100 WBC Auto (Bl d)Ordered By: Milton Guerrier on 06-07-2023 Neutrophils/100 WBC (Bld) 61.4 % . Nitrite Test strip Ql (U)Ord ered By: Milton Guerrier on 06-07-2023 Nitrite Ql (U) Negative Negative No Panel InformationOrdered By: Milton Guerrier on 06-07-2023 Estimated GFR (CKD-EPI) > 60.0 mL/Min Pharmacy Creatinine Clearance (Chem 126.88 Nucleated erythrocytes [Pres ence] in Blood by Automated countOrdered By: Milton Guerrier on 06-07-2023 Nucleated RBC Auto Ql (Bld) 0.1 /100{WBC} 0-0.5 Platelet mean volume Auto (B ld) [Entitic vol]Ordered By: Milton Guerrier on 06-07-2023 Platelet mean volume (Bld) [Entitic vol] 9.3 fL 6.6-10.1 Platelets Auto (Bld) [#/Vol] Ordered By: Milton Guerrier on 06-07-2023 Platelets (Bld) [#/Vol] 164 10*3/uL 150-450 Potassium [Moles/volume] in Serum or PlasmaOrdered By: Milton Guerrier on 06-07-2023 Potassium [Moles/Vol] 3.5 mmol/L 3.5-5.1 [facility] Protein Auto test strip (U) [Mass/Vol]Ordered By: Milton Guerrier on 06-07-2023 Protein (U) [Mass/Vol] Trace mg/dL Negative F [facility] Protein [Mass/volume] in Ser um or PlasmaOrdered By: Milton Guerrier on 06-07-2023 Protein [Mass/Vol] 8.2 g/dL 6.4-8.9 [facility] RBC Auto (Bld) [#/Vol]Ordere d By: Milton Guerrier on 06-07-2023 RBC (Bld) [#/Vol] 4.47 10*6/uL 3.90-5.60 [facility] Serum or plasma albumin/glob ulin mass ratioOrdered By: Milton Guerrier on 06-07-2023 Albumin/Globulin [Mass ratio] 1.3 {ratio} Serum or plasma anion gap de terminationOrdered By: Milton Guerrier on 06-07-2023 Anion gap [Moles/Vol] 11.3 mmol/L 6.0-15.0 Fi [facility] Serum or plasma non-glucuron idated bilirubin measurement (mass/volume)Ordered By: Milton Guerrier on 06-07-2023 Bilirubin.indirect [Mass/Vol] 0.6 mg/dL Sodium [Moles/volume] in Ser um or PlasmaOrdered By: Milton Guerrier on 06-07-2023 Sodium [Moles/Vol] 135 mmol/L 136-145 [facility] Specific gravity Auto test s trip (U) [Rel density]Ordered By: Milton Guerrier on 06-07-2023 Specific gravity (U) [Rel density] 1.022 1.001-1.03 0 Squamous epithelial cells de tection in urine sediment by light microscopyOrdered By: Milton Guerrier on 06-07-2023 Epithelial cells.squamous LM Ql (Urine sed) None seen [HPF] 0-2 Urea nitrogen [Mass/volume] in Serum or PlasmaOrdered By: Milton Guerrier on 06-07-2023 Urea nitrogen [Mass/Vol] 6 mg/dL 7-25 Urine bacteria detection by automated methodOrdered By: Milton Guerrier on 06-07-2023 Bacteria Auto Ql (U) None seen None Seen [facility] Urine clarity by refractomet ry automatedOrdered By: Milton Guerrier on 06-07-2023 Clarity Refractometry automated (U) Clear Clear Urine glucose measurement by automated test strip (mass/volume)Ordered By: Milton Guerrier on 06-07-2023 Glucose Auto test strip (U) [Mass/Vol] Normal mg/dL Normal Urine hemoglobin detection b y automated test stripOrdered By: Milton Guerrier on 06-07-2023 Hemoglobin Auto test strip Ql (U) Negative Negative Urine leukocyte esterase det ection by automated test stripOrdered By: Milton Guerrier on 06-07-2023 Leukocyte esterase Auto test strip Ql (U) 1+ Negative Urobilinogen Auto test strip (U) [Mass/Vol]Ordered By: Milton Guerrier on 06-07-2023 Urobilinogen (U) [Mass/Vol] Normal mg/dL Normal WBC Auto (Bld) [#/Vol]Ordere d By: Milton Guerrier on 06-07-2023 WBC (Bld) [#/Vol] 9.0 10*3/uL 4.1-10.5 [facility] pH Auto test strip (U)Ordere d By: Milton Guerrier on 06-07-2023 pH (U) 6.0 [pH] 5.0-9.0 Vital Signs Date Time Vital Sign Value Performing Clinician Facility 10-10-2023 21:45-0400 Body height 193.04 cm RACHEL Coyne Work Phone: 10-10-2023 21:45-0400 Body temperature 98.2 [degF] RACHEL Coyne Work Phone: 10-10-2023 21:45-0400 Body weight 91.1 kg DNP Denice Kaple Work Phone: 10-10-2023 21:45-0400 Diastolic blood pressure 60 mm[Hg] DNP Denice Kaple Work Phone: 10-10-2023 21:45-0400 Heart rate 84 /min DNP Denice Kaple Work Phone: 10-10-2023 21:45-0400 Respiratory rate 19 /min DNP Denice Kaple Work Phone: 10-10-2023 21:45-0400 SaO2% (BldA) [Mass fraction] 100 % DNP Deince Kaple Work Phone: 10-10-2023 21:45-0400 Systolic blood pressure 156 mm[Hg] DNP Denice Kaple Work Phone: 07-30-2023 08:32-0400 Body height 193.04 cm DNP Denice Kaple Work Phone: 07-30-2023 08:32-0400 Body mass index (BMI) [Ratio] 23.6 kg/m2 DNP Denice Kaple Work Phone: 07-30-2023 08:32-0400 Body temperature 97.8 [degF] DNP Denice Kaple Work Phone: 07-30-2023 08:32-0400 Body weight 87.99 kg DNP Denice Kaple Work Phone: 07-30-2023 08:32-0400 Diastolic blood pressure 85 mm[Hg] DNP Denice Kaple Work Phone: 07-30-2023 08:32-0400 Heart rate 107 /min DNP Denice Kaple Work Phone: 07-30-2023 08:32-0400 Respiratory rate 18 /min DNP Denice Kaple Work Phone: 07-30-2023 08:32-0400 SaO2% (BldA) [Mass fraction] 98 % DNP Denice Kaple Work Phone: 07-30-2023 08:32-0400 Systolic blood pressure 137 mm[Hg] DNP Denice Kaple Work Phone: 07-08-2023 11:07-0400 Body height 193.04 cm DNP Denice Kaple Work Phone: 07-08-2023 11:07-0400 Body mass index (BMI) [Ratio] 23.8 kg/m2 DNP Denice Kaple Work Phone: 07-08-2023 11:07-0400 Body temperature 97.5 [degF] DNP Denice Kaple Work Phone: 07-08-2023 11:07-0400 Body weight 88.9 kg DNP Denice Kaple Work Phone: 07-08-2023 11:07-0400 Diastolic blood pressure 91 mm[Hg] DNP Denice Kaple Work Phone: 07-08-2023 11:07-0400 Heart rate 92 /min DNP Denice Kaple Work Phone: 07-08-2023 11:07-0400 Respiratory rate 20 /min DNP Denice Kaple Work Phone: 07-08-2023 11:07-0400 SaO2% (BldA) [Mass fraction] 98 % DNP Denice Kaple Work Phone: 07-08-2023 11:07-0400 Systolic blood pressure 151 mm[Hg] DNP Denice Kaple Work Phone: 06-19-2023 08:35-0400 Body height 193.04 cm DNP Denice Kaple Work Phone: 06-19-2023 08:35-0400 Body mass index (BMI) [Ratio] 23.2 kg/m2 DNP Denice Kaple Work Phone: 06-19-2023 08:35-0400 Body weight 86.63 kg DNP Denice Kaple Work Phone: 06-19-2023 08:35-0400 Diastolic blood pressure 76 mm[Hg] DNP Denice Kaple Work Phone: 06-19-2023 08:35-0400 Heart rate 82 /min DNP Denice Kaple Work Phone: 06-19-2023 08:35-0400 Respiratory rate 18 /min DNP Denice Kaple Work Phone: 06-19-2023 08:35-0400 SaO2% (BldA) [Mass fraction] 97 % DNP Denice Kaple Work Phone: 06-19-2023 08:35-0400 Systolic blood pressure 126 mm[Hg] DNP Denice Kaple Work Phone: 06-12-2023 14:24-0500 Body height 193.04 cm DNP Denice Kaple Work Phone: 06-12-2023 14:24-0500 Body mass index (BMI) [Ratio] 21.4 kg/m2 DNP Denice Kaple Work Phone: 06-12-2023 14:24-0500 Body temperature 98.8 [degF] DNP Denice Kaple Work Phone: 06-12-2023 14:24-0500 Body weight 79.91 kg DNP Denice Kaple Work Phone: 06-12-2023 14:24-0500 Diastolic blood pressure 78 mm[Hg] DNP Denice Kaple Work Phone: 06-12-2023 14:24-0500 Heart rate 90 /min DNP Denice Kaple Work Phone: 06-12-2023 14:24-0500 SaO2% (BldA) [Mass fraction] 97 % DNP Denice Kaple Work Phone: 06-12-2023 14:24-0500 Systolic blood pressure 130 mm[Hg] DNP Denice Kaple Work Phone: 06-07-2023 17:56-0500 Body height 193.04 cm DNP Denice Kaple Work Phone: 06-07-2023 17:56-0500 Body temperature 101.2 [degF] DNP Denice Kaple Work Phone: 06-07-2023 17:56-0500 Body weight 86.18 kg DNP Denice Kaple Work Phone: 06-07-2023 17:56-0500 Diastolic blood pressure 86 mm[Hg] DNP Denice Kaple Work Phone: 06-07-2023 17:56-0500 Heart rate 89 /min DNP Denice Kaple Work Phone: 06-07-2023 17:56-0500 Respiratory rate 22 /min DNP Denice Kaple Work Phone: 06-07-2023 17:56-0500 SaO2% (BldA) [Mass fraction] 99 % DNP Denice Coyne Work Phone: 06-07-2023 17:56-0500 Systolic blood pressure 161 mm[Hg] DNP Denice Coyne Work Phone: 03-22-2021 12:30-0500 Body height 193.04 cm Denice Pererajuve Other [facility] Other 03-22-2021 12:30-0500 Body mass index (BMI) [Ratio] 24.27 kg/m2 Denice Stanford Other [facility] Other 03-22-2021 12:30-0500 Body temperature 97.3 [degF] Denice Stanford Other [facility] Other 03-22-2021 12:30-0500 Body weight 90.45 kg Denice Stanford Other [facility] Other 03-22-2021 12:30-0500 Diastolic blood pressure 70 mm[Hg] Denice Coyne Other [facility] Other 03-22-2021 12:30-0500 Respiratory rate 18 /min Denice Stanford Other [facility] Other 03-22-2021 12:30-0500 SaO2% (BldA) [Mass fraction] 99 % Denice Stanford Other [facility] Other 03-22-2021 12:30-0500 Systolic blood pressure 120 mm[Hg] Denice Coyne Other [facility] [employer] Other Encounters Encounter Date Encounter Type Care Provider Facility Start: 01-30-2024 End: 02-02-2024 External Result Encounter Lisbet Singh APPLICATION DEVELOPMENT PROJECT MANAGER Work Phone: [facility] Unsolicited Start: 01-30-2024 End: 02-02-2024 External Result Encounter Lisbet Singh APPLICATION DEVELOPMENT PROJECT MANAGER Work Phone: [facility] External [facility] Unsolicited Start: 01-30-2024 ambulatory Denice Stanford Facility : Start: 10-10-2023 End: 10-11-2023 Emergency department patient visit DNP Denice Coyne Work Phone: [facility] Work Phone: Start: 07-30-2023 End: 07-30-2023 ambulatory DNP Denice Coyne Work Phone: [facility] Work Phone: Start: 07-30-2023 End: 07-30-2023 Patient encounter procedure DNP Denice Coyne Work Phone: [facility] Work Phone: Start: 07-30-2023 Registered Recurring DNP Barbi Coyne [facility] Work Phone: Start: 07-08-2023 End: 07-08-2023 ambulatory DNP Denice Coyne Work Phone: [facility] Work Phone: Start: 07-08-2023 End: 07-08-2023 Patient encounter procedure DNP Denice Coyne Work Phone: [facility] Work Phone: Start: 07-08-2023 Registered Recurring DNP Barbi Coyne Work Phone: [facility] Work Phone: Start: 06-19-2023 End: 06-19-2023 ambulatory DNP Denice Coyne Work Phone: [facility] Work Phone: Start: 06-19-2023 End: 06-19-2023 Patient encounter procedure DNP Denice Coyne Work Phone: [facility] [place] Work Phone: Start: 06-12-2023 End: 06-12-2023 Patient encounter procedure DNP Denice Coyne Work Phone: [facility] [place] Work Phone: Start: 06-07-2023 End: 06-07-2023 Emergency department patient visit DNP Denice Coyne Work Phone: [facility] Work Phone: Start: 06-01-2021 End: 06-01-2021 ambulatory Denice Coyne Other [facility] Other Start: 06-01-2021 Telephone encounter Denice Hernandez [facility] [place] Start: 06-01-2021 Patient encounter status DNP Denice Coyne Work Phone: Start: 04-12-2021 End: 04-12-2021 ambulatory Denice Coyne Other [facility] Other Start: 04-12-2021 Telephone encounter Denice Coyne [facility] [place] Start: 03-22-2021 End: 03-22-2021 ambulatory Denice Coyne Other [facility] Other Start: 03-22-2021 Office outpatient vi sit 25 minutes Denice Coyne [facility] [place] Start: 03-22-2021 Telephone encounter Denice Hernandez [facility] [place] Procedures Date Procedure Procedure Detail Performing Clinician Start: 01-30-2024 Beta 2 glycoprotein i antibody each Lisbet Singh APPLICATION DEVELOPMENT PROJECT MANAGER Work Phone: Start: 06-07-2023 CT of abdomen and pe lvis without contrast DNP Denice Stanford Work Phone: Plan of Treatment Date Care Activity Detail Author Start: 10-10-2023 CT Abdomen and Pelvi s WO contrast Start: 10-10-2023 CT of abdomen and pe lvis without contrast CT abdomen pelvis wo con Start: 07-23-2023 Cardiolipin IgA Ab [Units/volume] in Serum by Immunoassay Start: 07-23-2023 Cardiolipin IgG Ab [Units/volume] in Serum by Immunoassay Start: 07-23-2023 Cardiolipin IgM Ab [Units/volume] in Serum by Immunoassay Start: 07-23-2023 Start: 06-19-2023 Patient referral [facility] Work Phone: Antithrombin Ag [Units/volume] in Platelet poor plasma by Immunoassay Cardiolipin IgA Ab [Units/volume] in Serum by Immunoassay Cardiolipin IgG Ab [Units/volume] in Serum by Immunoassay Cardiolipin IgM Ab [Units/volume] in Serum by Immunoassay Comprehensive metabo lic 2000 panel - Serum or Plasma F2 gene mutations fo und [Identifier] in Blood or Tissue by Molecular genetics method Nominal F5 gene mutations fo und [Identifier] in Blood or Tissue by Molecular genetics method Nominal Fibrin D-dimer [Pres ence] in Platelet poor plasma by Latex agglutination Patient Education [facility] Work Phone: Patient referral [facility] Work Phone: Protein C actual/nor mal in Platelet poor plasma by Chromogenic method Protein C Ag actual/ normal in Platelet poor plasma by Immunoassay [facility] Payers Date Payer Category Payer Self-pay [id number] 2023 Unknown [id number] 2021 Medicaid (Managed Care) LAURA LIMONREN [id number] Medicaid [facility] [id number] Unknown O [id number] Unknown [id number] Unknown [id number] Social History Date Type Detail Facility Sex Assigned At [facility] Other Start: 06-07-2023 End: 07-08-2023 Tobacco smoking status NHIS Smoker (finding) Start: 1990 Sex Assigned At Male F [facility] Start: 10-10-2023 Tobacco smoking status NHIS Ex-smoker (finding) Tobacco smoking status NEIS Tobacco smoking consumption unknown [facility] Start: 1990 Sex assigned at Not on file [facility] Evaluation note 03-22-2021 Note Date & Type Note Facility 03-22-2021 Evaluation note Encounter Date Diagnosis Assessment Notes Mar, Essential hypertension (ICD-10 - I10) Blood pressure is now stable since he restarted his blood pressure medication. He will continue this. Will plan on repeating lab work when he is seen in 3 weeks. Take medication as prescribed, keep follow up appointments, get any testing that's been ordered done in a timely fashion. Do not smoke. Call if any questions or problems. For Hypertension: Patient is advised to work on healthy diet choices and appropriate servings, weight control, regular exercise as directed, and salt avoidance. Monitor blood pressures at home and call if above target. He will follow back up in the office in 3 weeks for blood pressure follow up. Mar, Vasovagal syncope (ICD-10 - R55) Likely due to restarting blood pressure medication. Was seen in the ER and had workup completed. Did suffer a small bruise to the back of his head but is doing well from this and no neurological s/s present. Blood pressure is stable at this time and will continue current treatment plan. Warning s/s reviewed with patient today. Patient to go immediately to the ER should pt experience any of these. Patient verbalizes understanding and agrees to treatment plan. Mar, Medical marijuana use (ICD-10 - Z79.899) He does use this on a routine basis and discussed with him to make sure he is safe with use of this and make sure dizziness does not occur with use of this. [facility] Other Evaluation note Note Date & Type Note Facility Evaluation note No Information [facility] Other Evaluation note Note Date & Type Note Facility Evaluation note Diagnosis Onset Date Bilateral pulmonary embolism acute Bilateral pulmonary embolism acute [facility] Work Phone: Evaluation note Note Date & Type Note Facility Evaluation note Diagnosis Onset Date Bilateral pulmonary embolism acute Bilateral pulmonary embolism acute Bilateral pulmonary embolism acute [facility] Work Phone: Evaluation note Note Date & Type Note Facility Evaluation note Diagnosis Onset Date Bilateral pulmonary embolism [facility] Work Phone: History general Narrative - Reported Note Date & Type Note Facility History general Narrative - Reported Type Medical History HTN [facility] Other Hospital Discharge instructions Note Date & Type Note Facility Hospital Discharge instructions Ambulatory OrdersReferral to Hematology Location: None Selected [facility] Work Phone: Hospital Discharge instructions Note Date & Type Note Facility Hospital Discharge instructions Additional Instructions Your CAT scan of your abdomen and pelvis was unremarkable. It showed some constipation in the right side of the colon. Take the medication as prescribed for your muscle strain. Take Zanaflex if needed for muscle spasm You can do Tylenol also if needed for pain Continue medications as prescribed at home Ice to affected area for the next 24 hours and then rotate heat Return here if any problems persist or worsen [facility] Work Phone: Chief Complaint and Reason for Visit Chief Complaint severe lwr back pain ER follow up, Pneumonia, blood clots 1 WEEK FOLLOW UP/ PNEMONIA Reason for Visit Bilateral pulmonary embolism Bilateral pulmonary embolism Chief Complaint severe lwr back pain ER follow up, Pneumonia, blood clots 1 WEEK FOLLOW UP/ PNEMONIA Pulmonary embolus new PE re:taking Eloquis Reason for Visit Bilateral pulmonary embolism Bilateral pulmonary embolism Chief Complaint severe lwr back pain ER follow up, Pneumonia, blood clots 1 WEEK FOLLOW UP/ PNEMONIA new PE re:taking Eloquis Pulmonary embolus 2 Week Follow Up Reason for Visit Bilateral pulmonary embolism Bilateral pulmonary embolism Bilateral pulmonary embolism Chief Complaint Pulmonary embolus 2 Week Follow Up L side pain; ankle swelling Reason for Visit Bilateral pulmonary embolism Family History No Family History Records Found Relationship Condition Age at Onset Recorded Date/T nidhi father Hypertension Unknown Not Specified Hypertension Unknown Relationship Condition Age at Onset Recorded Date/T nidhi father Hypertension Unknown mother Hypertension Unknown Advance Directives No Advanced Directives Records Found Advance Directive Response Recorded Date/ Time Advance Directives No December 4:55pm Summary Purpose Additional Source Comments REASON FOR VISIT (unrecogniz ed section and content) [facility] [place] [facility] Care Teams (unrecognized sec tion and content) Team Status: Active Member Role Status Dates Denice Coyne DNP Primary Care Provider Active Team Status: Active Member Role Status Dates Denice Coyne DNP Primary Care Provid er, Referring Provider Active Start: July 30, 2023 Lisbet Singh APRN Attending Provider Active Start: July 29 Team Status: Inactive Member Role Status Dates Denice Coyne DNP Primary Care Provider Active Start: July 30, 2023 End: July 30, 2023 Lisbet Singh APRN Attending Provider Acti ve Start: July 30, 2023 End: July 30, 2023 Team Status: Inactive Member Role Status Dates Denice Coyne DNP Primary Care Provider Active Start: October 10, 2023 End: October 11, 2023 Roman Jauregui DO Emergency Provider Active Start: October 10, 2023 End: October 11, 2023 Team Status: Inactive Member Role Status Dates Denice Coyne DNP Primary Care Provider Active Start: June 07, 2023 End: June 07, 2023 Milton Guerrier DO Emergency Provider Active St art: June 07, 2023 End: June 07, 2023 Team Status: Inactive Member Role Status Dates Denice Coyne DNP Primary Care Provid er, Attending Provider Active Start: June 12, 2023 End: June 12, 2023 Team Status: Inactive Member Role Status Dates Denice Coyne DNP Primary Care Provid er, Attending Provider Active Start: June 19, 2023 End: June 19, 2023 Team Status: Active Member Role Status Cammy Coyne DNP Primary Care Provid er, Referring Provider Active Start: July 08, 2023 Lisbet Singh APRN Attending Provider Active Start: July 07 Team Status: Inactive Member Role Status Cammy Coyne DNP Primary Care Provid er, Referring Provider Active Start: July 08, 2023 End: July 08, 2023 Lisbet Singh APRN Attending Provider Active Start: July 07 End: July 08, 2023 Goals (unrecognized section and content) Goals may be documented in a n alternate section (unrecognized sect ion and content) No Status Records Found INFORMATION SOURCE (unrecogn ized section and content) DATE CREATED AUTHOR 09/01/2024 [facility] FOR RECORDS PERTAINING TO PATIENTS WHO ARE OR HAVE BEEN ENROLLED IN A CHEMICAL DEPENDENCY/SUBSTANCEABUSE PROGRAM, SOME INFORMATION MAY BE OMITTED. This clinical summary was aggregated from multiple sources. Caution should be exercised in using it in the provision of clinical care. This summary normalizes information from multiple sources, and as a consequence, information in this document may materially change the coding, format and clinical context of patient data. In addition, data may be omitted in some cases. CLINICAL DECISIONS SHOULD BE BASED ON THE PRIMARY CLINICAL RECORDS. [employer] [facility]. provides no warranty or guarantee of the accuracy or completeness of information in this document.
--- NOTE | 2024-10-07 08:17 | CT_ITS ---
The [address] [address] Patient Name: CHARISMA COLBY MRN: [id number] date: 1990 Sex: M Assigned Patient Location: ER Current Patient Location: ER Accession/Order Number: [id number] Exam Date: 10/07/2024 08:53 Report Date: 10/07/2024 08:57 At the request of: TEDDY NIÑO MD Procedure: CT head/brain wo con CT BRAIN WITHOUT CONTRAST: CLINICAL HISTORY: Headaches. Patient on Eliquis COMPARISON: None TECHNIQUE: Contiguous axial unenhanced images were obtained through the brain. This CT exam was performed using one or more following dose reduction techniques: Automated exposure control, adjustment of the mA and/or kV according to patient size, or use of iterative reconstruction technique. FINDINGS: The ventricles are normal in size and position. There are no areas of abnormal attenuation. There is no hemorrhage, mass effect or extra-axial collections. The imaged paranasal sinuses and mastoid air cells are clear. CT/CT head/brain wo con IMPRESSION: NO ACUTE INTRACRANIAL ABNORMALITY. Impression dictated by: Marilin Fernández M.D. 10/07/2024 8:57 AM Dictation Location: [place] [address] Electronically authenticated by: [id number] Y Date: 10/07/2024 08:57
--- NOTE | 2024-10-07 08:17 | ED.GENADUL1 ---
HPI HPI - General Adult General Chief complaint: Headache Stated complaint: HEADACHE Time Seen by Provider: 10/07/24 08:10 Source: patient Mode of arrival: walk-in Limitations: no limitations History of Present Illness HPI narrative: 33-year-old male presents to the emergency department for headache. He is here for weakness started on the left side. He is on Eliquis and was worried he might have some bleeding. He has had no trauma or fever or localized weakness. He has also been under a lot of stress recently. Related Data Home Medications ?Medication ?Instructions ?Recorded ?Confirmed apixaban 5 mg tablet (Eliquis) 5 mg PO BID 10/07/24 10/07/24 Allergies Allergy/AdvReac Type Severity Reaction Status Date / Time No Known Drug Allergies Allergy Verified 10/07/24 08:07 Opioid HPI Opioid Management Most Recent Opioid Data: Last Pain Scale 10 Today, 08:17 Review of Systems ROS Narrative A ten point review of systems is negative except as noted above. [facility] Medical History (Updated 10/07/24 @ 09:05 by Arik Noriega MD) History of hypertension ?Z86.79 - Personal history of other diseases of the circulatory system (ICD-10) History of atrial fibrillation ?Z86.79 - Personal history of other diseases of the circulatory system (ICD-10) Hx pulmonary embolism ?Z86.711 - Personal history of pulmonary embolism (ICD-10) Social History Smoking status: Current every day smoker Little interest or pleasure in doing things: not at all Feeling down, depressed, or hopeless: not at all Exam Narrative Exam Narrative: Nurses note and vital signs reviewed and patient is not hypoxic. General: The patient appears well and in no apparent distress. Patient is resting comfortably on cart. Skin: Warm, dry, no pallor noted. There is no rash noted. Head: Normocephalic, atraumatic; neck supple, no nuchal rigidity Eye: Normal conjunctiva, no drainage Ears, Nose, Mouth, and Throat: oral mucosa is moist. Nares patent. Cardiovascular: Regular Rate and Rhythm Respiratory: Patient is in no distress, no accessory muscle use, lungs are clear to auscultation, no wheezing, rales or rhonchi Back: non-tender, no CVA tenderness bilaterally to percussion. GI: Soft and Musculoskeletal: The patient has no evidence of calf tenderness, no pitting edema, symmetrical pulses noted bilaterally Neurological: A&O, normal speech; upper and lower extremity strength 5 out of 5 and symmetric Psychiatric: Cooperative Constitutional Vital Signs, click to edit/add: Last Vital Signs Temp 98.2 F 10/07/24 08:08 Pulse 89 10/07/24 08:08 Resp 16 10/07/24 08:08 BP 146/82 H 10/07/24 08:08 Pulse Ox 99 10/07/24 08:08 O2 Del Method Room Air 10/07/24 08:08 Course Vital Signs Vital signs: Vital Signs Temperature 98.2 F 10/07/24 08:08 Pulse Rate 89 10/07/24 08:08 Respiratory Rate 16 10/07/24 08:08 Blood Pressure 146/82 H 10/07/24 08:08 Pulse Oximetry 99 10/07/24 08:08 Oxygen Delivery Method Room Air 10/07/24 08:08 Temperature 98.2 F 10/07/24 08:08 Pulse Rate 89 10/07/24 08:08 Respiratory Rate 16 10/07/24 08:08 Blood Pressure 146/82 H 10/07/24 08:08 Pulse Oximetry 99 10/07/24 08:08 Oxygen Delivery Method Room Air 10/07/24 08:08 Medical Decision Making MDM Narrative Medical decision making narrative: His CT brain is negative and he was reassured and discharged home. Treatment diagnosis and follow-up were discussed with the patient. Differential Diagnosis Differential Diagnosis: Intracranial hemorrhage, stress Imaging Data CT scan - head: Radiologist's impression: ITS Impressions Head CT 10/07/24 08:17 IMPRESSION: NO ACUTE INTRACRANIAL ABNORMALITY. Impression dictated by: Marilin Fernández M.D. 10/07/2024 8:57 AM Dictation Location: [place] [address] Electronically authenticated by: [id number] Y Date: 10/07/2024 08:57 Discharge Plan Discharge Chief Complaint: Headache Clinical Impression: Headache Patient Disposition: Home, Self-Care Time of Disposition Decision: 09:05 Condition: Good Mode of Transportation: Private Vehicle Prescriptions / Home Meds: No Action Eliquis 5 mg tablet 5 mg PO BID Print Language: Montserratian Instructions: Acute Headache (ED) Referrals: Physician,Non-Staff, MD [Primary Care Provider] - 1 week
== END 2024-10-07 09:16 | disposition home or self-care (01) ==
PROVIDERS: Emergency Provider Emergency Medicine
DX: R51.9 Headache, unspecified (principal); Z79.01 Long term (current) use of anticoagulants; F17.200 Nicotine dependence, unspecified, uncomplicated
CPT/HCPCS: 70450; 99284